=== PATIENT | male | born 1985 | race Two or more races ===

== ENCOUNTER 2018-01-31 11:53 | Emergency (ER) | payer SELFPAY ==
[2018-01-31 12:25] VITALS: BP 156/88; PULSE 113; TEMP 99.5; BMI 47.5
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
[2018-01-31] MEDS ORDERED: ACETAMINOPHEN 500 MG TABLET (FP) PO ONE (13:37)
[2018-01-31] MEDS ORDERED: ACETAMINOPHEN 500 MG TABLET (FP) ONE (13:43)
== END 2018-01-31 14:39 | disposition home or self-care (01) ==
LOC: JERFT 11:53
DX: S09.90XA Unspecified injury of head, initial encounter (principal); Y04.2XXA Assault by strike against or bumped into by another person, initial encounter; X58.XXXA Exposure to other specified factors, initial encounter; Y93.89 Activity, other specified; Y92.521 Bus station as the place of occurrence of the external cause
CPT/HCPCS: 70450-TC; 99281-25

== ENCOUNTER 2021-06-20 01:42 | Emergency (ER) | payer OTHER ==
[2021-06-20 01:52] VITALS: BP 150/92; PULSE 82; TEMP 97.6; BMI 40.6
[2021-06-20] MEDS ORDERED: LIDOCAINE 2.5%/PRILOCAINE 2.5% (5 Gram/TUBE) TP ONE (02:21)
[2021-06-20] MEDS ORDERED: LIDOCAINE 2.5%/PRILOCAINE 2.5% 30 GRAM TUBE TP ONE (02:21)
== END 2021-06-20 02:58 | disposition home or self-care (01) ==
LOC: JER 01:42
DX: S31.21XA Laceration without foreign body of penis, initial encounter (principal); W26.8XXA Contact with other sharp object(s), not elsewhere classified, initial encounter; Y93.E8 Activity, other personal hygiene
CPT/HCPCS: 99282-25